=== PATIENT | female | born 1950 | race Caucasian/White ===

== ENCOUNTER 2018-06-09 20:17 | Emergency (ER) | payer MEDICARE, OTHER, SELFPAY ==
[2018-06-09 20:22] VITALS: BP 96/61; PULSE 76; RESP 16; TEMP 36.4; O2SAT 100
--- NOTE | 2018-06-09 20:52 | ED.GENADUL_ITS ---
Disposition Clinical Impression: UTI (urinary tract infection) Disposition: HOME Condition: Good Instructions: Urinary Tract Infection in Women (ED) Additional Instructions: follow up with your primary care provider next week if symptoms are not improving if you have fevers, persistent vomit, severe abdominal pain or back pain return to the emergency department Prescriptions: Nitrofurantoin Monohyd/M-Cryst [Macrobid 100 mg Capsule] 100 mg PO BID #14 capsule Medical Decision Making - Lab Data Laboratory Tests 06/09/18 20:48 Urine Color Cancelled Urine Clarity Cancelled Urine pH Cancelled Ur Specific [place] Cancelled Urine Protein Cancelled Urine Ketones Cancelled Urine Blood Cancelled Urine Nitrite Cancelled Urine Bilirubin Cancelled Urine Urobilinogen Cancelled Ur Leukocyte Esterase Cancelled Urine Glucose Cancelled - Medical Decision Making pt here with symptoms that seem most consistent with uti. Has no findings to suggest sepsis, pyelo at this time. She has been taking pyridium so UA will not be beneficial, will start macrobid and urine culture ordered, advised f/u with pcp and return precautions given - Differential Diagnosis uti, cystitis History of Present Illness - General Chief complaint: Urinary Stated complaint: UTI? Time Seen by Provider: 06/09/18 20:36 Source: patient Mode of arrival: ambulatory Limitations: no limitations - History of Present Illness Initial comments: 67 yo female comes in with cc of dysuria and frequency. She states she gets frequent uti's and was on cephalexin 2 weeks ago at an outpatient clinic in [facility] where she lives. She denies fevers, back pain, abd pain, n/v. Complaint: dysuria Onset/Timin -: days(s) Improves with: none Worsens with: none - Related Data Phenazopyridine HCl [Pyridium] 100 mg PO TID PRN PRN #6 tablet 07/06/15 Ciprofloxacin [Cipro] 500 mg PO BID #14 tab 05/31/16 Nitrofurantoin Monohyd/M-Cryst [Macrobid 100 mg Capsule] 100 mg PO BID #14 capsule 06/09/18 Allergies Allergy/AdvReac Type Severity Reaction Status Date / Time sulfamethoxazole AdvReac Dizziness/L Unverified 05/31/16 09:39 [From Bactrim] ightheade trimethoprim [From Bactrim] AdvReac Dizziness/L Unverified 05/31/16 09:39 ightheade Review of Systems Constitutional: denies: fever Respiratory: denies: shortness of breath Gastrointestinal: denies: abdominal pain, nausea, vomiting Genitourinary: dysuria, frequency Musculoskeletal: denies: back pain Neurological: denies: headache Comment: All other systems reviewed and negative Past Medical History - Past Medical History Medical history: no medical history - Social History Alcohol use: none Drug use: none General Exam - General Limitations: no limitations General appearance: alert, in no apparent distress - Head Head exam: Present: atraumatic - Eye Eye exam: Present: normal apperance - ENT ENT exam: Present: mucous membranes moist - Neck Neck exam: Present: normal inspection - Respiratory Respiratory exam: Absent: respiratory distress - Cardiovascular Cardiovascular Exam: Present: regular rate - GI/Abdominal GI/Abdominal exam: Present: soft. Absent: tenderness - Back Exam Back exam: Absent: CVA tenderness (R), CVA tenderness (L) - Skin Skin exam: Present: warm Course Vital Signs - 24 hr 06/09/18 20:22 Temperature 97.5 F L Pulse 76 Respiratory 16 Rate Blood Pressure 96/61 Pulse Oximetry 100
[2018-06-09] MEDS: MacroBID 100 MG CAP PO (20:55)
[2018-06-09 20:57] VITALS: BP 96/61; PULSE 76; RESP 16; TEMP 36.4; O2SAT 100
== END 2018-06-09 20:59 | disposition home or self-care (01) ==
PROVIDERS: Emergency Provider Emergency Medicine
DX: N39.0 Urinary tract infection, site not specified (principal); Z87.440 Personal history of urinary (tract) infections
CPT/HCPCS: 99283 ×2; 87077; 81003; 87086; 87186

== ENCOUNTER 2018-07-29 09:31 | Emergency (ER) | payer MEDICARE, OTHER, SELFPAY ==
[2018-07-29 09:43] VITALS: BP 112/78; PULSE 88; RESP 16; TEMP 36.4; O2SAT 99
[2018-07-29 10:08] LABS: Bilirubin Negative (Negative); Blood Moderate (Negative); Clarity Cloudy; Glucose Negative (Negative); Ketones Negative (Negative); Leukocyte Esterase Trace (Negative); Nitrite Positive (Negative); Specific Gravity 1.025 (1.005-1.025); Urobilinogen 0.2 EU/dL (Up TO 0.2); pH 6.5 (5-8)
[2018-07-29 10:12] LABS: C & S Indicated? Yes; RBC >50 (0-2)
--- NOTE | 2018-07-29 10:20 | W.ED.GENAD ---
Discharge Plan Disposition Patient Disposition: HOME Condition: Stable Discharge Details Chief Complaint: Urinary Clinical Impression: Dysuria Primary Care Provider: MARY THRASHER ED Provider: José Miguel Bell Home Meds and New Rx's Prescriptions: New cephalexin 500 mg tablet 500 mg PO QID Qty: 28 RF: 0 Continue phenazopyridine [Pyridium] 100 MG tablet 100 mg PO TID PRN PRNQty: 6 RF: 0 omeprazole 40 mg Capsule,Delayed Release(Dr/Ec) 40 mg PO DAILY RF: 0 Discharge Instructions Instructions: Dysuria (ED) Additional Instructions: Feel free to return to the emergency department for new or worsening symptoms such as fevers, nausea vomiting, or any further concerns he may have. Otherwise it is strongly encouraged that you follow-up with your primary care provider next week for reassessment. Referrals: MARY THRASHER [Primary Care Provider] - (Follow-up with your primary care provider next week for reassessment.) Discharge Data Discharge Date/Time-TO BE ENTERED AT DEPARTURE: 07/29/18 11:14 Medical Decision Making Patient presenting to the emergency department for chief complaint of urinary urgency burning and frequency. Patient states over the past 6 months she has had multiple urinary tract infections and is due to see the urologist in September for possible concern of reflux. Patient states that she drove up to the area last night and started having symptoms. She took 1 Pyridium early in the morning which did not provide any relief. Physical exam is unremarkable and shows no signs of acute distress, patient is afebrile, no CVA tenderness, no nausea vomiting and patient is not ill in appearance. There is concern for urinary tract infection so plan on checking urinalysis. Pending results I do not feel the patient needs any interventions. After review of urinalysis that is positive for nitrites and leukocyte esterase along with significant amount of RBCs but minimal WBCs patient was reassessed. Patient stated no further new or symptoms. There is concern for possible other etiology causing hematuria such as possible bladder carcinoma given that patient has been having severe frequency of symptoms with greater occurrence along with some constipation. Did discuss with patient about doing further imaging including possible bladder ultrasound and she stated that she would prefer to follow-up with her primary care provider when she returns home on Wednesday. Patient was encouraged to return for any new or worsening signs or symptoms. Given the patient is symptomatic and does state relief in the past after antibiotics patient placed on Keflex 500 mg 4 times daily. After discussion of diagnosis and plan of care patient is no further needs, questions, or concerns and states clear understanding to return to the emergency department for any worsening symptoms. Lab Data Lab results reviewed: Yes I reviewed the patient's lab results. HPI General Mode of arrival: ambulatory. Date/Time Provider Initiated Documentation: 07/29/18 09:55. Limitations to Documentation: no limitations. Information obtained by: patient, RN notes reviewed and old records reviewed. History of Present Illness 67 year old F presents to the emergency department with the chief complaint of UTI, described as moderate, with intensity rated at 5. Quality is described as burning and aching, and is localized to the genitals. Patient reports no radiation. Patient started experiencing this hour(s) (9) and it has been constant. No relieving factors improve symptom(s), No exacerbating factors reported . Patient notes no other symptoms.. Patient did receive the following treatments prior to arrival, other Related Data Home Medications Medication Instructions Recorded Confirmed phenazopyridine [Pyridium] 100 mg PO TID PRN PRN #6 tablet 07/06/15 07/29/18 cephalexin 500 mg PO QID #28 tab 07/29/18 omeprazole 40 mg PO DAILY 07/29/18 07/29/18 Previous Rx's Medication Instructions Recorded phenazopyridine [Pyridium] 100 mg PO TID PRN PRN #6 tablet 07/06/15 cephalexin 500 mg PO QID #28 tab 07/29/18 Allergies Allergy/AdvReac Type Severity Reaction Status Date / Time sulfamethoxazole AdvReac Dizziness/L Unverified 05/31/16 09:39 [From Bactrim] ightheade trimethoprim [From Bactrim] AdvReac Dizziness/L Unverified 05/31/16 09:39 ightheade General Stated Complaint: Urinary MARYJANE: 4 Review of Systems Constitutional Denies body ache(s), Denies chills, Denies fever(s), Denies malaise and Denies weakness Cardiovascular Denies chest pain Respiratory Reports system reviewed and no additional complaints, except as docu Gastrointestinal Denies abdominal pain, Denies nausea and Denies vomiting Genitourinary Reports as per HPI, Reports hematuria, Reports dysuria and Reports urinary urgency Neurologic Denies confusion and Denies weakness Psychiatric Denies confusion PFSH Social History Smoking/Tobacco Use Status: Never Exam Const General: cooperative and no acute distress Orientation: alert, awake and oriented x3 Resp Effort & Inspection: normal respiratory effort and able to speak in complete sentences Auscultation: clear to auscultation bilaterally Cardio Rate: regular rate Rhythm: regular rhythm Heart Sounds: S1 normal and S2 normal GI Palpation: nontender Back/Spine/Pelvis Back: no CVA tenderness Neuro General: alert, awake and oriented x3 Extrem General: normal capillary refill Course Vital Signs Temperature 36.4 C L 07/29/18 09:43 Pulse 88 07/29/18 09:43 Respiratory Rate 16 07/29/18 09:43 Blood Pressure 112/78 07/29/18 09:43 Pulse Oximetry 99 07/29/18 09:43 Temperature 36.4 C L 07/29/18 09:43 Temperature Source Temporal Artery Scan 07/29/18 09:43 Pulse 88 07/29/18 09:43 Respiratory Rate 16 07/29/18 09:43 Respiratory Effort 07/29/18 09:45 Blood Pressure 112/78 07/29/18 09:43 Blood Pressure Position Sitting 07/29/18 09:43 Pulse Oximetry 99 07/29/18 09:43 Oxygen Delivery Method Room Air 07/29/18 09:43 Oxygen Flow Rate 0 07/29/18 09:43 Pain Level 6 07/29/18 09:46 Lab/Test Results Lab/Test Results: 07/29/18 09:50 Urine - Reflex from Ua Urine Culture - Pending Laboratory Tests Range/Units 07/29/18 09:50 Urine Color (Yellow) Red Urine Clarity Cloudy Urine pH (5-8) 6.5 Ur Specific [place] (1.005-1.025) 1.025 Urine Protein (Negative) mg/dL 100 H Urine Ketones (Negative) mg/dL Negative Urine Blood (Negative) Moderate H Urine Nitrite (Negative) Positive H Urine Bilirubin (Negative) Negative Urine Urobilinogen (Up TO 0.2) EU/dL 0.2 Ur Leukocyte Esterase (Negative) Trace H Urine RBC (0-2) >50 H Urine WBC (0-5) HPF Ur Epithelial Cells Not Applicable Urine Crystals Not Applicable Urine Bacteria Not Applicable Urine Mucus Not Applicable Ur Culture Indicated? Yes Urine Glucose (Negative) mg/dL Negative
--- NOTE | 2018-07-29 10:24 | ED.GENADUL_ITS ---
Discharge Plan Disposition Patient Disposition: HOME Condition: Stable Discharge Details Chief Complaint: Urinary Clinical Impression: Dysuria Primary Care Provider: MARY THRASHER ED Provider: José Miguel Bell Home Meds and New Rx's Prescriptions: New cephalexin 500 mg tablet 500 mg PO QID Qty: 28 RF: 0 Continue phenazopyridine [Pyridium] 100 MG tablet 100 mg PO TID PRN PRNQty: 6 RF: 0 omeprazole 40 mg Capsule,Delayed Release(Dr/Ec) 40 mg PO DAILY RF: 0 Discharge Instructions Instructions: Dysuria (ED) Additional Instructions: Feel free to return to the emergency department for new or worsening symptoms such as fevers, nausea vomiting, or any further concerns he may have. Otherwise it is strongly encouraged that you follow-up with your primary care provider next week for reassessment. Referrals: MARY THRAHSER [Primary Care Provider] - (Follow-up with your primary care provider next week for reassessment.) Discharge Data Discharge Date/Time-TO BE ENTERED AT DEPARTURE: 07/29/18 11:14 Medical Decision Making Patient presenting to the emergency department for chief complaint of urinary urgency burning and frequency. Patient states over the past 6 months she has had multiple urinary tract infections and is due to see the urologist in September for possible concern of reflux. Patient states that she drove up to the area last night and started having symptoms. She took 1 Pyridium early in the morning which did not provide any relief. Physical exam is unremarkable and shows no signs of acute distress, patient is afebrile, no CVA tenderness, no nausea vomiting and patient is not ill in appearance. There is concern for urinary tract infection so plan on checking urinalysis. Pending results I do not feel the patient needs any interventions. After review of urinalysis that is positive for nitrites and leukocyte esterase along with significant amount of RBCs but minimal WBCs patient was reassessed. Patient stated no further new or symptoms. There is concern for possible other etiology causing hematuria such as possible bladder carcinoma given that patient has been having severe frequency of symptoms with greater occurrence along with some constipation. Did discuss with patient about doing further imaging including possible bladder ultrasound and she stated that she would prefer to follow-up with her primary care provider when she returns home on Wednesday. Patient was encouraged to return for any new or worsening signs or symptoms. Given the patient is symptomatic and does state relief in the past after antibiotics patient placed on Keflex 500 mg 4 times daily. After discussion of diagnosis and plan of care patient is no further needs, questions , or concerns and states clear understanding to return to the emergency department for any worsening symptoms. Lab Data Lab results reviewed: Yes I reviewed the patient's lab results. HPI General Mode of arrival: ambulatory . Date/Time Provider Initiated Documentation: 07/29/18 09:55 . Limitations to Documentation: no limitations . Information obtained by: patient, RN notes reviewed and old records reviewed . History of Present Illness 67 year old F presents to the emergency department with the chief complaint of UTI, described as moderate, with intensity rated at 5. Quality is described as burning and aching, and is localized to the genitals. Patient reports no radiation. Patient started experiencing this hour(s) (9) and it has been constant. No relieving factors improve symptom(s), No exacerbating factors reported . Patient notes no other symptoms.. Patient did receive the following treatments prior to arrival, other Related Data Home Medications Medication Instructions Recorded Confirmed phenazopyridine [Pyridium] 100 mg PO TID PRN PRN #6 tablet 07/06/15 07/29/18 cephalexin 500 mg PO QID #28 tab 07/29/18 omeprazole 40 mg PO DAILY 07/29/18 07/29/18 Previous Rx's Medication Instructions Recorded phenazopyridine [Pyridium] 100 mg PO TID PRN PRN #6 tablet 07/06/15 cephalexin 500 mg PO QID #28 tab 07/29/18 Allergies Allergy/AdvReac Type Severity Reaction Status Date / Time sulfamethoxazole AdvReac Dizziness/L Unverified 05/31/16 09:39 [From Bactrim] ightheade trimethoprim [From Bactrim] AdvReac Dizziness/L Unverified 05/31/16 09:39 ightheade General Stated Complaint: Urinary MARYJANE: 4 Review of Systems Constitutional Denies body ache(s), Denies chills, Denies fever(s), Denies malaise and Denies weakness Cardiovascular Denies chest pain Respiratory Reports system reviewed and no additional complaints, except as docu Gastrointestinal Denies abdominal pain, Denies nausea and Denies vomiting Genitourinary Reports as per HPI, Reports hematuria, Reports dysuria and Reports urinary urgency Neurologic Denies confusion and Denies weakness Psychiatric Denies confusion PFSH Social History Smoking/Tobacco Use Status: Never Exam Const General: cooperative and no acute distress Orientation: alert, awake and oriented x3 Resp Effort & Inspection: normal respiratory effort and able to speak in complete sentences Auscultation: clear to auscultation bilaterally Cardio Rate: regular rate Rhythm: regular rhythm Heart Sounds: S1 normal and S2 normal GI Palpation: nontender Back/Spine/Pelvis Back: no CVA tenderness Neuro General: alert, awake and oriented x3 Extrem General: normal capillary refill Course Vital Signs Temperature 36.4 C L 07/29/18 09:43 Pulse 88 07/29/18 09:43 Respiratory Rate 16 07/29/18 09:43 Blood Pressure 112/78 07/29/18 09:43 Pulse Oximetry 99 07/29/18 09:43 Temperature 36.4 C L 07/29/18 09:43 Temperature Source Temporal Artery Scan 07/29/18 09:43 Pulse 88 07/29/18 09:43 Respiratory Rate 16 07/29/18 09:43 Respiratory Effort 07/29/18 09:45 Blood Pressure 112/78 07/29/18 09:43 Blood Pressure Position Sitting 07/29/18 09:43 Pulse Oximetry 99 07/29/18 09:43 Oxygen Delivery Method Room Air 07/29/18 09:43 Oxygen Flow Rate 0 07/29/18 09:43 Pain Level 6 07/29/18 09:46 Lab/Test Results Lab/Test Results: 07/29/18 09:50 Urine - Reflex from Ua Urine Culture - Pending Laboratory Tests Range/Units 07/29/18 09:50 Urine Color (Yellow) Red Urine Clarity Cloudy Urine pH (5-8) 6.5 Ur Specific [place] (1.005-1.025) 1.025 Urine Protein (Negative) mg/dL 100 H Urine Ketones (Negative) mg/dL Negative Urine Blood (Negative) Moderate H Urine Nitrite (Negative) Positive H Urine Bilirubin (Negative) Negative Urine Urobilinogen (Up TO 0.2) EU/dL 0.2 Ur Leukocyte Esterase (Negative) Trace H Urine RBC (0-2) >50 H Urine WBC (0-5) HPF Ur Epithelial Cells Not Applicable Urine Crystals Not Applicable Urine Bacteria Not Applicable Urine Mucus Not Applicable Ur Culture Indicated? Yes Urine Glucose (Negative) mg/dL Negative
[2018-07-29] MEDS: Cephalexin 500 MG CAP PO (11:13)
== END 2018-07-29 11:14 | disposition home or self-care (01) ==
PROVIDERS: Emergency Provider Nurse Practitioner Family
DX: R30.0 Dysuria (principal)
CPT/HCPCS: 87077; 99283; 81003; 81015; 87086; 87186

== ENCOUNTER 2019-11-21 10:16 | Emergency (ER) | payer MEDICARE, OTHER, SELFPAY ==
[2019-11-21 10:20] VITALS: BP 132/72; PULSE 69; RESP 18; TEMP 36.5; O2SAT 100
[2019-11-21 10:31] LABS: Bilirubin Negative (Negative); Blood Moderate (Negative); Clarity Sl Cloudy (Clear); Glucose Negative (Negative); Ketones Negative (Negative); Leukocyte Esterase Moderate (Negative); Nitrite Negative (Negative); Urobilinogen 0.2 EU/dL (Up TO 0.2)
--- NOTE | 2019-11-21 10:40 | W.ED.GENAD ---
Discharge Plan Disposition Patient Disposition: HOME Condition: Improving Discharge Details Chief Complaint: Urinary Clinical Impression: Urinary tract infection Primary Care Provider: Marilyn,Local ED Provider: Kilo Bone Home Meds and New Rx's Prescriptions: New cephalexin 500 mg capsule 500 mg PO TID 7 Days Qty: 21 RF: 0 Continued omeprazole 40 mg Capsule,Delayed Release(Dr/Ec) 40 mg PO DAILY RF: 0 phenazopyridine [Pyridium] 100 MG tablet 100 mg PO TID PRN PRN (Reason: pain) Qty: 6 RF: 0 Discharge Instructions Instructions: Urinary Tract Infection in Women (ED) Additional Instructions: Please follow-up with urology as you have planned. Take antibiotics as prescribed. May use Pyridium as needed for ease of discomfort. Small, frequent use of fluids so that you maintain good hydration. Return the emergency department for any acute concerns while in the area. Medical Decision Making 69-year-old female presents from home stating she has had 1 day of recurrent symptoms of urinary tract infection. She has burning and sensation of incomplete voiding. Her vital signs are normal and she is pleasant and otherwise well-appearing. Urinalysis reveals blood and positive leuk esterase. Greater than 50 white blood cells. Reviewed previous cultures which show E. coli that sensitive to both Keflex and nitrofurantoin. Will place her on a course of Keflex. She has pre-standing follow-up with urology at home in [place]. Patient understands homecare as well as return precautions. HPI General Mode of arrival: ambulatory. Date/Time Provider Initiated Documentation: 11/21/19 10:21. Limitations to Documentation: no limitations. Information obtained by: patient. History of Present Illness 69 year old F presents to the emergency department with the chief complaint of Burning with urination, described as mild and similar to prior episodes, Quality is described as burning, and is localized to the pelvis. Patient reports no radiation. Patient started experiencing this hour(s) and it has been intermittent. No relieving factors improve symptom(s), No exacerbating factors reported . Patient notes denies fever/chills, loss of appetite and nausea/vomiting. Patient did receive the following treatments prior to arrival, none Related Data Home Medications Medication Instructions Recorded Confirmed omeprazole 40 mg PO DAILY 07/29/18 11/21/19 cephalexin 500 mg PO TID 7 Days #21 cap 11/21/19 phenazopyridine [Pyridium] 100 mg PO TID PRN PRN #6 tab 11/21/19 Previous Rx's Medication Instructions Recorded cephalexin 500 mg PO TID 7 Days #21 cap 11/21/19 phenazopyridine [Pyridium] 100 mg PO TID PRN PRN #6 tab 11/21/19 Allergies Allergy/AdvReac Type Severity Reaction Status Date / Time sulfamethoxazole AdvReac Dizziness/L Unverified 11/21/19 10:28 [From Bactrim] ightheade trimethoprim [From Bactrim] AdvReac Dizziness/L Unverified 11/21/19 10:28 ightheade General Stated Complaint: Urinary MARYJANE: 4 Review of Systems Narrative: History of similar in the past. Sees a urologist in [place]. No other complaints. 6 systems reviewed and otherwise negative [facility] Social History Smoking/Tobacco Use Status: Never Alcohol Intake: never Drug use: Never Do you feel safe at home: Yes Do you feel safe in your relationship?: Yes Exam Narrative Exam Narrative: GEN: awake, alert, oriented 3. Pleasant, well groomed, interactive. HEAD: Normocephalic, atraumatic ENT: Mucous membranes moist, oropharynx unremarkable, External ear exam unremarkable EYES: PERRL, EOMI NECK: Full ROM, no AMADO, no menigismus CHEST/RESP: Nontender, clear to auscultation bilateral, no wheeze/rhonchi/rales CARDIOVASCULAR: RRR, no murmur, rub molly. 2+ Rad pulse bilateral ABDOMEN: Soft, nontender, no mass. +Bowel sounds EXT: Full ROM, no edema, no rash Neuro: Grossly normal neurologic exam, conversant, interactive. Psych: Speech fluent, thoughts congruent, affect normal Course Vital Signs Vital signs: Vital Signs Temperature 36.5 C 11/21/19 10:20 Pulse 69 11/21/19 10:20 Respiratory Rate 18 11/21/19 10:20 Blood Pressure 132/72 11/21/19 10:20 Pulse Oximetry 100 11/21/19 10:20 Temperature 36.5 C 11/21/19 10:20 Temperature Source Temporal Artery Scan 11/21/19 10:20 Pulse 69 11/21/19 10:20 Respiratory Rate 18 11/21/19 10:20 Respiratory Effort Non-Labored 11/21/19 10:27 Blood Pressure 132/72 11/21/19 10:20 Blood Pressure Position Sitting 11/21/19 10:20 Pulse Oximetry 100 11/21/19 10:20 Oxygen Delivery Method Room Air 11/21/19 10:20 Oxygen Flow Rate 0 11/21/19 10:20 Pain Level 0 11/21/19 10:31 Lab/Test Results Lab/Test Results: Laboratory Tests Range/Units 11/21/19 10:19 Urine Color (Yellow) Yellow Urine Clarity (Clear) Sl cloudy Urine pH (5-8) 6.0 Ur Specific [place] (1.005-1.025) 1.020 Urine Protein (Negative) mg/dL Negative Urine Ketones (Negative) mg/dL Negative Urine Blood (Negative) Moderate H Urine Nitrite (Negative) Negative Urine Bilirubin (Negative) Negative Urine Urobilinogen (Up TO 0.2) EU/dL 0.2 Ur Leukocyte Esterase (Negative) Moderate H Urine Glucose (Negative) mg/dL Negative
[2019-11-21 10:42] LABS: Bacteria Few HPF (Negative); Epithelial Cells Few HPF (Negative); WBC >50 HPF (0-5)
[2019-11-21 10:43] LABS: C & S Indicated? Yes
--- NOTE | 2019-11-26 08:26 | W.ED.FU ---
Follow Up Plan: Reviewed patient's urine culture. Patient with Klebsiella pneumonia on urine culture treated appropriately with Keflex sensitive. No action taken
== END 2019-11-21 11:13 | disposition home or self-care (01) ==
LOC: ER 11:01
PROVIDERS: Emergency Provider Emergency Medicine
DX: N39.0 Urinary tract infection, site not specified (principal)
CPT/HCPCS: 87077; 99283; 81003; 81015; 87086; 87186

== ENCOUNTER 2021-04-17 11:18 | Outpatient (REF) | payer MEDICARE, OTHER, SELFPAY ==
[2021-04-19 13:31] LABS: COVID-19 RT-PCR UVMMC Result Negative (Negative)
== END 2021-04-17 11:19 | disposition home or self-care (01) ==
LOC: LBN 11:18
PROVIDERS: Visit Provider Physician Assistant Medical
DX: J02.9 Acute pharyngitis, unspecified (principal); Z20.822 Contact with and (suspected) exposure to COVID-19
CPT/HCPCS: U0003; 87070

== ENCOUNTER 2022-05-07 19:42 | Outpatient (REF) | payer MEDICARE, OTHER, SELFPAY | END 2022-05-07 19:43 | disposition home or self-care (01) | LOC: LBN 19:42 | PROVIDERS: Visit Provider Physician Assistant Medical ==

== ENCOUNTER 2022-05-07 20:15 | Outpatient (REF) | payer MEDICARE, OTHER, SELFPAY ==
[2022-05-07 14:56] LABS: Bilirubin Negative (Negative); Blood Large (Negative); Clarity Sl Cloudy (Clear); Glucose Negative (Negative); Ketones Negative (Negative); Leukocyte Esterase Small (Negative); Nitrite Negative (Negative); Specific Gravity >= 1.030 (1.005-1.025); Urobilinogen 0.2 EU/dL (Up TO 0.2)
[2022-05-07 16:55] LABS: Bacteria Few HPF (Negative); C & S Indicated? Yes; Crystals Negative HPF (Negative); Epithelial Cells Negative HPF (Negative); Mucus Negative (Negative); RBC >50 HPF (0-2); WBC >50 HPF (0-5)
== END 2022-05-07 20:16 | disposition home or self-care (01) ==
LOC: LBN 20:15
PROVIDERS: Visit Provider Physician Assistant Medical
DX: R30.0 Dysuria (principal)
CPT/HCPCS: 87077; 81003; 81015; 87086; 87186

== ENCOUNTER 2023-02-15 16:28 | Outpatient (REF) | payer MEDICARE, SELFPAY | END 2023-02-15 16:29 | disposition home or self-care (01) | LOC: LBN 16:28 | PROVIDERS: Visit Provider Nurse Practitioner Family | DX: N30.01 Acute cystitis with hematuria (principal) | CPT/HCPCS: 87077; 87086; 87186 ==

== ENCOUNTER 2023-07-04 23:07 | Emergency (ER) | payer MEDICARE, SELFPAY ==
[2023-07-04 23:10] VITALS: BP 142/53; PULSE 71; RESP 16; TEMP 36; O2SAT 97
--- NOTE | 2023-07-04 23:32 | ED.GENADUL_ITS ---
Discharge Plan Disposition Patient Disposition: Home Discharge Details Clinical Impression: Acute UTI Primary Care Provider: Taco Caldwell ED Provider: Joon Lindquist Home Meds and New Rx's Prescriptions: New cefdinir 300 mg capsule 300 mg PO BID 7 Days Qty: 14 0RF No Action omeprazole 40 mg Capsule,Delayed Release(Dr/Ec) 40 mg PO DAILY phenazopyridine [Pyridium] 100 MG tablet 100 mg PO TID PRN PRN (Reason: pain) Qty: 6 0RF Rx Instructions: Take 1 tablet TID prn dysuria. Discharge Instructions Instructions: Urinary Tract Infection in Women (ED) Medical Decision Making 72-year-old female history of recurrent UTIs, refractory to Macrobid in the past, successful treatment with cefdinir in the past presents with urinary frequency dysuria over the past couple of days. Denies fevers chills nausea vomiting or back pain. Patient hemodynamically stable afebrile nontoxic. We will treat empirically with cefdinir, given positive home test and symptoms, will send urinalysis here in department. Home care instructions and return precautions given. Likely simple cystitis lower suspicion for pyelonephritis HPI General Date/Time Provider Initiated Documentation: 07/04/23 23:11 . HPI Narrative: 72-year-old female history of recurrent UTIs, most recently in May patient was treated unsuccessfully with Macrobid, antibiotic was changed to cefdinir with success. Patient presents with dysuria and urinary frequency. Denies back pain fevers nausea vomiting or abdominal pain. Related Data Home Medications Medication Instructions Recorded Confirmed omeprazole 40 mg capsule,delayed 40 mg PO DAILY 07/29/18 07/04/23 release phenazopyridine 100 mg tablet 100 mg PO TID PRN PRN pain #6 tabs 11/21/19 07/04/23 (Pyridium) cefdinir 300 mg capsule 300 mg PO BID 7 days #14 caps 07/04/23 Previous Rx's Medication Instructions Recorded phenazopyridine 100 mg tablet 100 mg PO TID PRN PRN pain #6 tabs 11/21/19 (Pyridium) cefdinir 300 mg capsule 300 mg PO BID 7 days #14 caps 07/04/23 Allergies Allergy/AdvReac Type Severity Reaction Status Date / Time sulfamethoxazole AdvReac Unknown Dizziness/L Unverified 07/04/23 23:13 [From Bactrim] ightheade trimethoprim [From Bactrim] AdvReac Unknown Dizziness/L Unverified 07/04/23 23:13 ightheade General Stated Complaint: Urinary MARYJANE: 5 Review of Systems Narrative: Review of Systems Constitutional: negative Eyes: negative ENT: negative Cardiovascular: negative Respiratory: negative Gastrointestinal: negative : negative Musculoskeletal: negative Skin: negative Neurologic: negative Psych: negative PFSH All Active Problems (Updated 07/04/23 @ 23:35 by Joon Lindquist MD) Dysuria (Acute) Acute UTI (Acute) Social History Smoking/Tobacco Use Status: Never Smoking risk assessment performed?: Yes Alcohol Intake: never Drug use: Never Do you feel safe at home: Yes Do you feel safe in your relationship?: Yes Exam Narrative Exam Narrative: Physical Examination General: alert, awake, cooperative, resting comfortably, no acute distress HEENT: normocephalic, atraumatic; PERRL, EOM intact, conjunctiva normal; no nasal discharge; moist mucous membranes, oral and pharyngeal mucosa normal, tolerating secretions Neck: supple, trachea midline; full ROM Chest: normal to inspection Respiratory: normal respiratory effort, speaking in full sentences, clear to auscultation, no wheezing, rales or rhonchi Cardiac: regular rate, regular rhythm, S1S2 intact, no murmurs rubs or gallops GI: abdomen soft, non-tender, non-distended; no palpable mass or hepatosplenomegaly Skin: no lesions, rashes or trauma appreciated Neuro: AAOx3, normal speech, moving all extremities Psych: Appropriate mood and affect Course Vital Signs Vital signs: Vital Signs Temperature 36.0 C L 07/04/23 23:10 Pulse 71 07/04/23 23:10 Respiratory Rate 16 07/04/23 23:10 Blood Pressure 142/53 H 07/04/23 23:10 Pulse Oximetry 97 07/04/23 23:10 Temperature 36.0 C L 07/04/23 23:10 Temperature Source Tympanic 07/04/23 23:10 Pulse 71 07/04/23 23:10 Respiratory Rate 16 07/04/23 23:10 Respiratory Effort Normal 07/04/23 23:12 Blood Pressure 142/53 H 07/04/23 23:10 Pulse Oximetry 97 07/04/23 23:10 Pain Level 0 07/04/23 23:10
[2023-07-04 23:35] LABS: Bilirubin Negative (Negative); Blood Small (Negative); Clarity Sl Cloudy (Clear); Glucose Negative (Negative); Ketones Trace mg/dL (Negative); Leukocyte Esterase Small (Negative); Nitrite Negative (Negative); Specific Gravity >= 1.030 (1.005-1.025); Urobilinogen 0.2 mg/dL (Up to 0.2); pH 5.5 (5-8)
[2023-07-04 23:45] LABS: Bacteria Few HPF (Negative); Crystals Many Calcium Oxalate HPF (Negative); Epithelial Cells Moderate HPF (Negative); WBC 20-50 HPF (0-5)
[2023-07-04 23:47] LABS: C & S Indicated? No/Sq. Contamination; Mucus Negative (Negative)
[2023-07-04] MEDS: Cefdinir 300 MG CAP PO (23:47)
== END 2023-07-04 23:48 | disposition home or self-care (01) ==
PROVIDERS: Emergency Provider Emergency Medicine; PCP Family Medicine
DX: N39.0 Urinary tract infection, site not specified (principal)
CPT/HCPCS: 99282; 81003; 81015

== ENCOUNTER 2024-08-29 14:39 | Outpatient (REF) | payer MEDICARE, SELFPAY | END 2024-08-29 14:40 | disposition home or self-care (01) | LOC: LBN 14:39 | PROVIDERS: PCP Family Medicine; Visit Provider Nurse Practitioner Family | DX: N30.01 Acute cystitis with hematuria (principal); R82.89 Other abnormal findings on cytological and histological examination of urine | CPT/HCPCS: 87086 ==